=== PATIENT | female | born 1975 | race Caucasian/White ===

== ENCOUNTER 2020-01-02 22:11 | Emergency (ER) | payer MEDICARE, MEDICAID ==
[~2020-01-02] VITALS: Ht 160 cm; Wt 111.1 kg
[2020-01-02 22:34] VITALS: BP 156/83
[2020-01-02] MEDS ORDERED: BENADRYL ALLERG25 M1 PO (22:58)
[2020-01-02] MEDS ORDERED: MYCOLOG OINT1 APPLIC TOPIC (22:58)
[2020-01-02] MEDS ORDERED: EPIPEN 2-P0.3 MG/0.3 IM (22:58)
--- NOTE | 2020-01-02 22:58 | Emergency Room Report ---
History of Present Illness General Chief Complaint: Skin Rash/Abscess Source: Patient Present Illness HPI 44-year-old female with past medical history of diabetes, hypertension, dyslipidemia presents with chief complaint of itchy rash x4 days. No other household contacts have similar itchy rash. She thinks it may be due to her bedding/sheets. She has been scratching because she thought she got bit by a bug. She is wondering whether this is an allergy to a new diabetes medication her primary care doctor started her on 4 days ago. Her sugars have been controlled at home. Otherwise denies any new meds, recent travel, new bedding/sheets/soap/detergent or dietary changes. She denies nausea, sensation of throat closure, SOB, wheezing, nausea or vomiting. She also states that she has different rashes underneath her breasts and in her groin region for the past 1 month and is getting worse when its hot The patient's symptoms were gradual onset, severity was moderate, duration since 4 days. Quality: itchy Past medical history: DM HTN HLD Past surgical history: Bilateral tubal ligation Smoking: Denies Alcohol use: Denies Drug use: Denies Review of systems: CONST: No fevers or chills, No night sweats PULMONARY: No productive cough, No shortness of breath CARDIAC: No chest pain, No palpitations GI: No vomiting, No diarrhea , No melena_or_BRBPR : No dysuria, No hematuria, No discharge NEURO: No new_focal_weakness_or_numbness, No confusion, No vision changes 14 point Review of Systems is otherwise negative except per HPI Physical Exam: GENERAL: Awake_alert_ nontoxic, no acute distress Spo2 98% on RA -normal EYES: Extraocular muscles are intact. Conjunctivae clear. Lids without swelling ENT: External nose and ear normal_in_appearance. Oropharynx clear. Head_atraumatic, Moist_oral_mucosa No stridor, hoarse voice, drooling. Speaks in full and complete sentences NECK: No JVD. No meningismus. No thyromegaly. Supple. Trachea midline RESP: Normal respiratory effort. Symmetric rise. No stridor. Clear_to_auscultation_No_rales_No_wheezes CARDIAC: Regular rate and regular rhytm. No_significant pedal edema. ABDOMEN: Soft. Nondistended. Nontender_No_rebound_or_guarding. MSK: Normal muscle tone, without rigidity. Extremities without asymmetric deformity or swelling. SKIN: Warm and dry. No visible cyanosis or pallor Several linear burrows on the anterior shins, webspaces between the toes, and dorsal forearm. No crepitus, cellulitis, or abscess palpated Intertriginous candidal yeast infection below bilateral breasts and in the groin region underneath the pannus NEUROLOGIC: Alert, oriented x3. Motor_and_sensation_grossly_intact. No truncal ataxia. Gait_normal Psych: Normal mood and affect, normal judgment and insight - COORDINATION OF CARE Case was discussed with: Patient Medical Decision Making/Plan: Several linear burrows on the anterior shins, webspaces between the toes, and dorsal forearm. No crepitus, cellulitis, or abscess palpated Intertriginous candidal yeast infection below bilateral breasts and in the groin region underneath the pannus Initial VSS are stable. Airway is intact with no stridor, drooling, or increased WOB. No oral, tongue or lip swelling noted. Clinically, patient's acute rash is consistent with scabies. No complications such as abscess or cellulitis noted. Patient will be prescribed permethrin. I will instruct her to wash all of her linens/clots in hot water and bag bulky items and keep them sealed for 2 weeks. I have educated her to only apply permethrin from the neck down into avoid her eyes and mucosal membranes. The rash underneath her breasts and pannus are consistent with Sarai. Recommend weight loss and to keep the area clean and dry. Patient recently had a new medication started. Due to diagnostic uncertainty of whether her new rash represents an allergic reaction, will prescribe EpiPen at home in case of rebound anaphylaxis. Currently, patient appears to be presenting with mild to moderate allergic reaction, there is no evidence of angioedema, no oral involvement, no difficulty breathing or nausea vomiting. Patient is nontoxic and well-appearing the patient is tolerating fluids. The findings are minimal and due to nonprogression of symptoms here the patient is safe to discharge home. The patient feels comfortable with plan and will return immediately if symptoms begin to worsen. Patient given a dose of steroids and Benadryl here in the emergency department. Patient will be discharged with an EpiPen and Benadryl. Patient was instructed to avoid all potential allergic stimuli in the future The patient was instructed to avoid potential precipitating factor and to follow up with their regular physician for referral to museum informatics specialist for definitive allergy testing. Pertinent results reviewed with the patient. I educated the patient on the curr ent treatment plan including the risks, benefits, and alternatives. I also discussed the extent and limitations of the current evaluation. The patient expressed understanding and agreement with plan. I recommended PMD follow-up within 1-2 days. Also advised that the patient return to the Emergency Department as soon as possible if they experience any new, persistent, or worsening symptoms. Allergies: Coded Allergies: No Known Allergies (Unverified , 01/02/20) COVID-19 Screening Contact w/high risk pt: No Experienced COVID-19 symptoms?: No COVID-19 Testing performed CORPORATE DEVELOPMENT OFFICER: No Physical Exam Vital Signs Date Time Temp Pulse Resp B/P (MAP) Pulse Ox O2 Delivery O2 Flow Rate FiO2 01/02/20 22:24 98.1 98 20 156/83 (107) 96 Room Air Sp02 EP Interpretation: reviewed, normal Medical Decision Making Diagnostic Impression: Primary Impression: Scabies Additional Impression: Skin yeast infection Last Vital Signs Date Time Temp Pulse Resp B/P (MAP) Pulse Ox O2 Delivery O2 Flow Rate FiO2 01/02/20 22:34 98.1 98 20 156/83 96 Room Air Disposition: HOME, SELF-CARE Admit Decision Time: 23:00 Condition: Stable Scripts Permethrin* (ELIMITE*) 60 Gm Cream..g. 1 APPLIC TOPIC ONCE, #1 TUBE 0 Refills Apply cream from head to toe; leave on for 8-14 hours before washing off with water Prov: Lita Peña D.O. 01/02/20 Epinephrine (Epipen 2-Bird) 0.3 Mg/0.3 Ml Auto.injct 0.3 MG IM ONCE for anaphylaxis for 1 Day, #1 EA Prov: Lita Peña D.O. 01/02/20 Diphenhydramine Hcl (BENADRYL ALLERGY) 25 Mg Tablet 25 MG PO QID for itching for 7 Days, #28 TAB Prov: Lita Peña D.O. 01/02/20 Nystatin/Triamcinolone (Nystatin-Triamcinolone Ointm) 15 Gm Oint...g. 1 APPLIC TOPIC DAILY for 3 Days, #60 GM Prov: Lita Peña D.O. 01/02/20 Referrals: NOT CHOSEN IPA/MD,REFERRING (PCP) Patient Instructions: Scabies, Pediatric, Skin Yeast Infection, Rash Additional Instructions: Instructions for patient/impregnator electrolytic capacitors: Follow up with your physician in 1-2 days. Wash all of your bedding and clothes. Bag your close for at least 2 to 3 days so the mites will diet. Do not scratch as he will introduce a bacterial infection to your pre-existing bites. Please discontinue your new diabetes medication and follow-up promptly with your primary care doctor. You may be experiencing an allergic reaction. Keep Benadryl on hand. Only use the EpiPen as discussed for anaphylaxis (when you feel like you are unable to breathe because of throat closure). You will need referral to an museum informatics specialist within 1 to 2 days. Follow-up with your doctor sooner if your condition requires a more timely clinical reevaluation. Return to the emergency department immediately if you feel that your condition is worsening or if you have any new or concerning symptoms. Review your discharge instructions and take any prescriptions given as instru cted. [facility] PROVIDES FREE OR LOW-COST HEALTH SERVICES TO PEOPLE WHO CAN SHOW PROOF THAT THEY LIVE IN [facility]. TO FIND MORE CLINICS PARTNERED WITH THE [facility] TO PROVIDE SERVICE, PLEASE CALL . Lita Peña D.O. Jan 02, 2020 22:58
[2020-01-02] MEDS ORDERED: PERMETHRIN60 GM TOPIC (22:59)
[2020-01-02 23:05] VITALS: BP 145/86
== END 2020-01-02 23:05 | disposition home or self-care (01) ==
LOC: EMR 22:41
DX: B86 Scabies (principal); B37.2 Candidiasis of skin and nail; E11.9 Type 2 diabetes mellitus without complications; I10 Essential (primary) hypertension; E78.5 Hyperlipidemia, unspecified
CPT/HCPCS: 99282; J8540

== ENCOUNTER 2020-05-09 02:20 | Emergency (ER) | payer MEDICARE, MEDICAID ==
[~2020-05-09] VITALS: Ht 160 cm; Wt 104.3 kg
[~2020-05-09 02:20] MED LIST: BENADRYL ALLERG25 M1 PO; EPIPEN 2-P0.3 MG/0.3 IM; MYCOLOG OINT1 APPLIC TOPIC; PERMETHRIN60 GM TOPIC
--- NOTE | 2020-05-09 02:54 | Emergency Room Report ---
History of Present Illness General Chief Complaint: Female Urogenital Problems Source: Patient Present Illness [facility] This a 44-year-old female with a history of diabetes for which she takes insulin and pills. She does not check her blood sugar. She said her A1c level is around 11. She presents with chief complaint of vaginal itching. Onset for the last week. She has some whitish discharge. Also irritation in the groin area. No dysuria frequency. No hematuria. Nothing made it better. Nothing made it worse. Similar symptom in the past. Allergies: Coded Allergies: No Known Allergies (Unverified , 01/02/20) COVID-19 Screening Contact w/high risk pt: No Experienced COVID-19 symptoms?: No COVID-19 Testing performed SUPERVISOR GROVE: No Patient History Past Medical History: see triage record, old chart reviewed, DM Past Surgical History: other Last Menstrual Period: 04/04/20 Now: No Immunizations: other Reviewed Nursing Documentation: PMH: Agreed; PSxH: Agreed Nursing Documentation-PMH Past Medical History: No History, Except For Hx Cardiac Problems: Yes - HF Hx Hypertension: Yes Hx Diabetes: Yes Review of Systems Eye: Denies: eye pain, blurred vision ENT: Denies: ear pain, nose congestion, throat swelling Respiratory: Denies: cough, shortness of breath Cardiovascular: Denies: chest pain, palpitations Gastrointestinal: Denies: abdominal pain, diarrhea, nausea, vomiting Genitourinary: Reports: discharge Musculoskeletal: Denies: back pain, joint pain Skin: Denies: rash Neurological: Denies: headache, numbness Endocrine: Denies: increased thirst, increased urine Hematologic/Lymphatic: Denies: easy bruising All Other Systems: negative except mentioned in HPI Physical Exam Vital Signs Date Time Temp Pulse Resp B/P (MAP) Pulse Ox O2 Delivery O2 Flow Rate FiO2 05/09/20 02:21 97.9 92 18 103/59 (74) 100 Room Air Vitals normal Sp02 EP Interpretation: reviewed, normal General Appearance: well appearing, no apparent distress, alert, obese Head: normocephalic, atraumatic Eyes: bilateral eye PERRL, bilateral eye EOMI ENT: hearing grossly normal, normal pharynx Neck: full range of motion, supple, no meningismus Respiratory: chest non-tender, lungs clear, normal breath sounds Cardiovascular #1: regular rate, rhythm, no murmur Gastrointestinal: normal bowel sounds, non tender, no mass, no organomegaly, no bruit, non-distended Musculoskeletal: back normal, normal range of motion, gait/station normal Psychiatric: mood/affect normal Medical Decision Making Diagnostic Impression: Primary Impression: Vaginal candidiasis Additional Impressions: Morbid obesity with BMI of 40.0-44.9, adult Hyperglycemia due to type 2 diabetes mellitus Qualified Codes: E11.65 - Type 2 diabetes mellitus with hyperglycemia; Z79.4 - FPC (current) use of insulin ER Course Patient with candidiasis secondary to hypoglycemia. Patient is noncompliant with her dietary regimen. She does not check her sugar. The fact that her A1c level is above 11 and is concerning. Will discharge home. Last Vital Signs Date Time Temp Pulse Resp B/P (MAP) Pulse Ox O2 Delivery O2 Flow Rate FiO2 05/09/20 02:21 97.9 92 18 103/59 (74) 100 Room Air Status: improved Disposition: HOME, SELF-CARE Condition: Stable Scripts Nystatin* (NYSTATIN*) 15 Gm Cream..g. 1 APPLIC TOPIC THREE TIMES A DAY, #30 GM Prov: He Sidhu MD 05/09/20 Fluconazole* (DIFLUCAN*) 100 Mg Tablet 100 MG ORAL DAILY, #7 TAB Prov: He Sidhu MD 05/09/20 Referrals: NOT CHOSEN IPA/,REFERRING (PCP) Patient Instructions: Vaginal Yeast Infection, Adult Additional Instructions: Check your sugar regularly. Take your diabetes medication. Follow-up with your doctor in 7 days. Return if symptoms worsen. He Sidhu MD May 09, 2020 02:54
[2020-05-09] MEDS ORDERED: NYSTATIN15 GM TOPIC (02:55)
[2020-05-09] MEDS ORDERED: DIFLUCAN100 MG ORAL (02:55)
[2020-05-09 03:00] VITALS: BP 146/82
[2020-05-09] MEDS ORDERED: Fluconazole 100mg tab ORAL ONE (03:00)
[2020-05-09] MEDS ORDERED: Insulin Human Regular 100units/ml 3ml SUBQ ONE (03:00)
--- NOTE | 2020-05-09 03:29 | NUR ---
ER DISCHARGE NOTE: Patient is cleared to be discharged per ERMD, pt is aox4, on room air, with stable vital signs. pt was given dc and prescription instructions, pt was able to verbalize understanding, pt id band and iv site removed without complications. pt is able to ambulate with steady gait. pt took all belongings.
== END 2020-05-09 03:29 | disposition home or self-care (01) ==
LOC: EMR 02:36
DX: B37.3 Candidiasis of vulva and vagina (principal); E66.01 Morbid (severe) obesity due to excess calories; E11.65 Type 2 diabetes mellitus with hyperglycemia; Z79.4 Long term (current) use of insulin; I10 Essential (primary) hypertension; Z68.41 Body mass index [BMI] 40.0-44.9, adult
CPT/HCPCS: 82962; 96372; 99283; J1815

== ENCOUNTER 2020-05-20 20:48 | Emergency (ER) | payer MEDICARE, MEDICAID ==
[~2020-05-20] VITALS: Ht 160 cm; Wt 104.3 kg
[~2020-05-20 20:48] MED LIST changes: +DIFLUCAN100 MG ORAL; +NYSTATIN15 GM TOPIC
--- NOTE | 2020-05-20 21:07 | Emergency Room Report ---
History of Present Illness General Chief Complaint: Earache Source: Patient Present Illness HPI Disclaimer: Please note that this report is being documented using [employer] technology. This can lead to erroneous entry secondary to incorrect interpretation by the dictating instrument. HPI: 44-year-old female presents for evaluation of left ear pain. Patient was wearing in ear headphones and accidentally hit the left ear and inserted headphone into the external canal deeper than typical. Noted sharp pain and easily removed it. Denied bleeding or purulence. Denies changes in hearing. Reports persistent soreness over the left ear. Denies fever or chills. Denies sore throat or other symptoms. She is here because she needs a note to go back to work PMH: Reviewed PSH: Reviewed Allergies: Reviewed Social Hx: Reviewed Allergies: Coded Allergies: No Known Allergies (Unverified , 01/02/20) COVID-19 Screening Contact w/high risk pt: No Experienced COVID-19 symptoms?: No COVID-19 Testing performed EARLY INTERVENTIONIST: No Patient History Last Menstrual Period: 3 days ago Nursing Documentation-PMH Past Medical History: No History, Except For Hx Cardiac Problems: Yes - HF Hx Hypertension: Yes Hx Diabetes: Yes Review of Systems All Other Systems: negative except mentioned in HPI Physical Exam Vital Signs Date Time Temp Pulse Resp B/P (MAP) Pulse Ox O2 Delivery O2 Flow Rate FiO2 05/20/20 20:54 97.9 98 15 117/79 (92) 98 Room Air General: Awake and alert, no acute distress HEENT: NC/AT. EOMI. tympanic membranes bilaterally are pearly willson, nonbulging with clear landmarks. No perforation identified. Mild erythema in the external auditory canal on the left side but no signs of overlying infection. No edema. No drainage. No mastoid tenderness. Resp: Normal work of breathing Skin: Intact. No abrasions, laceration or rash over the exposed skin MSK: Normal tone and bulk. Moving all extremities. No obvious deformity. Neuro: Awake and alert. Mentating appropriately Medical Decision Making Diagnostic Impression: Primary Impression: Ear pain Additional Impression: Eardrum trauma ER Course Is a 44-year-old female presenting for evaluation of pain in the left ear after traumatically inserting a headphone into it 2 days ago. No signs of perforation. External canal somewhat erythematous likely from trauma. Low concern for infection. She may return to work. Instructed to use Tylenol or Motrin for pain and swelling. Instructed to return with new or worsening symptoms. Last Vital Signs Date Time Temp Pulse Resp B/P (MAP) Pulse Ox O2 Delivery O2 Flow Rate FiO2 05/20/20 20:54 97.9 98 15 117/79 (92) 98 Room Air Disposition: HOME, SELF-CARE Condition: Stable Departure Forms: Return to Work Return to Full Activity: May 20, 2020 Work Restrictions: None Patient Instructions: Earache Additional Instructions: Please follow-up with your primary care doctor in the next 1 to 3 days to discuss this emergency department visit and for reevaluation. If you have any new or worsening symptoms please return to the emergency department for reevaluation. Please note that this report is being documented using [employer] technology. This can lead to erroneous entry secondary to incorrect interpretation by the dictating instrument. Barry Cárdenas MD May 20, 2020 21:07
--- NOTE | 2020-05-20 21:15 | NUR ---
ED Nurse Note: Pt c/o left ear pain after using a blue tooth ear piece.
--- NOTE | 2020-05-20 21:44 | NUR ---
ED Nurse Note: Pt cleared by health care Provider for discharge. D/C instructions given and explained to pt and pt verbalized understanding of teachings. ID band removed. Pt is AAO x4, ambulatory and left with all personal belongings.
[2020-05-20 21:54] VITALS: BP 117/79
[2020-05-20 21:59] VITALS: BP 117/79
== END 2020-05-20 22:00 | disposition home or self-care (01) ==
LOC: EMR 21:09
DX: S09.91XA Unspecified injury of ear, initial encounter (principal); H92.02 Otalgia, left ear; I11.0 Hypertensive heart disease with heart failure; I50.9 Heart failure, unspecified; E11.9 Type 2 diabetes mellitus without complications; X58.XXXA Exposure to other specified factors, initial encounter; Y93.89 Activity, other specified; Y92.9 Unspecified place or not applicable
CPT/HCPCS: 99282